=== PATIENT | male | born 1965 | race Caucasian/White ===

== ENCOUNTER 2019-01-27 16:08 | Emergency (ER) | payer SELFPAY ==
[~2019-01-27] VITALS: Ht 160 cm; Wt 84.0 kg
[~2019-01-27 16:08] MED LIST: DIAZ5TAB PO; IBUP800T48 PO
[2019-01-27 16:14] VITALS: Ht 160 cm; Wt 84.0 kg
[2019-01-27] MEDS ORDERED: HYDROCODONE/APAP (10/325) TAB PO ONE (16:30)
[2019-01-27] MEDS ORDERED: ONDANSETRON (ODT) 4 MG TAB ODT ONE (16:30)
[2019-01-27 17:22] VITALS: BP 120/78; PULSE 71; RESP 17
== END 2019-01-27 17:23 | disposition home or self-care (01) ==
LOC: E/R 16:08
DX: S13.4XXA Sprain of ligaments of cervical spine, initial encounter (principal); S06.0X1A Concussion with loss of consciousness of 30 minutes or less, initial encounter; V49.49XA Driver injured in collision with other motor vehicles in traffic accident, initial encounter
CPT/HCPCS: 70450; 72125